=== PATIENT | male | born 1980 | race Caucasian/White ===

== ENCOUNTER 2020-12-02 09:47 | Emergency (ER) | payer OTHER ==
[~2020-12-02] VITALS: Ht 188 cm; Wt 106.8 kg
--- NOTE | 2020-12-02 10:30 | REP ---
INDICATION: CHEST PAIN. COMPARISON: None TECHNIQUE: Upright PA and lateral chest. FINDINGS: The lung dyson are clear. Cardiac size is normal. The last, mediastinum and skeletal structures are unremarkable. IMPRESSION: Essentially negative portable chest <Electronically signed by Prashanth Rudolph > 12/02/20 1025
[2020-12-02 10:33] LABS: BASO # 0.1 10^3/uL (0.0-0.2); BASO % 0.8 % (0.0-1.0); EOS # 0.2 10^3/uL (0.0-0.5); EOS % 2.9 % (0.0-3.0); HEMOGLOBIN 14.8 g/dl (13.5-17.5); LYMPH # 1.8 10^3/uL (1.5-5.0); LYMPH % 29.2 % (24.0-44.0); MEAN CORPUSCULAR HEMOGLOBIN 29.8 pg (27.0-33.0); MEAN CORPUSCULAR HGB CONC 32.9 g/dl (32.0-36.5); MEAN CORPUSCULAR VOLUME 90.5 fl (80.0-96.0); MONO # 0.7 10^3/uL (0.0-0.8); MONO % 10.6 % (2.0-8.0); NEUTROPHILS # 3.5 10^3/uL (1.5-8.5); NEUTROPHILS % 56.2 % (36.0-66.0); PLATELET COUNT, AUTOMATED 291 10^3/uL (150-450); RED BLOOD COUNT 4.97 10^6/uL (4.30-6.10); WHITE BLOOD COUNT 6.1 10^3/uL (4.0-10.0)
[2020-12-02 11:02] LABS: ALT/SGPT 55 U/L (12-78); BILIRUBIN,DIRECT < 0.1 MG/DL (0.0-0.2); BILIRUBIN,TOTAL 0.3 MG/DL (0.2-1.0); BLOOD UREA NITROGEN 15 MG/DL (7-18); CALCIUM LEVEL 8.9 MG/DL (8.5-10.1); CARBON DIOXIDE LEVEL 32 MEQ/L (21-32); CHLORIDE LEVEL 106 MEQ/L (98-107); CK-MB VALUE MASS < 1.0 NG/ML (<3.6); CPK CREATINE PHOSPHOKINASE 152 U/L (39-308); CREATININE FOR GFR 1.43 MG/DL (0.70-1.30); GLOMERULAR FILTRATION RATE 58.3 (>60); GLUCOSE, FASTING 104 MG/DL (70-100); LIPASE 118 U/L (73-393); MB/CK RELATIVE INDEX 0.66 (< OR =4); POTASSIUM SERUM 4.1 MEQ/L (3.5-5.1); SODIUM LEVEL 141 MEQ/L (136-145); TOTAL PROTEIN 7.4 GM/DL (6.4-8.2); TROPONIN I < 0.02 NG/ML (< 0.10)
[2020-12-02 11:04] LABS: RSV AMPLIFICATION NEGATIVE (NEGATIVE)
[2020-12-02] MEDS ORDERED: ISOVUE-370 76% 100ML VIAL As Ordered ONE (11:12)
--- NOTE | 2020-12-02 12:33 | REP ---
INDICATION: chest pain. COMPARISON: Radiograph today. TECHNIQUE: CT angiogram chest performed following the intravenous administration of 100 cc of Isovue 370. Sagittal and coronal reconstruction images are performed. FINDINGS: Lungs: There is no evidence of acute infiltrate in either lung. In the right lower lobe there is a 3 mm nodular density seen on image 54. In the left lower lobe there is a 5 mm nodular density seen on image 57. Mediastinum: No adenopathy. Pulmonary arteries: No evidence of pulmonary embolism. Meena: No adenopathy. Axilla: No adenopathy. Pleura: No effusion. Heart: Not enlarged. Thoracic aorta: No aneurysm or dissection. Upper abdominal structures: There is diffuse fatty infiltration of the liver. Visualized osseous structures: Unremarkable. IMPRESSION: No CT evidence of pulmonary embolism. No infiltrate seen. In the right lower lobe there is a 3 mm nodular density and in the left lower lobe there is a 5 mm nodular density. According to Fleischner society criteria, no follow-up is needed if the patient is at low risk for cancer, an optional 1 year follow-up CT may be obtained if the patient is at high risk for cancer. <Electronically signed by Prashanth Callejas > 12/02/20 0945
[2020-12-02 12:49] VITALS: BP 122/89
--- NOTE | 2020-12-02 12:53 | ECGEPIP ---
[facility] - ED Test Date: 2020-12-02 Pat Name: GAIL RIBERA Department: Room: - Gender: Male Math Teacher: MERYL : 1980 Requested By: Varinder Menjivar Order Number: [id number] Reading MD: Varinder Menjivar Measurements Intervals [place] Rate: 65 P: 31 RI: 174 QRS: 43 QRSD: 96 T: 21 QT: 388 QTc: 403 Interpretive Statements Normal sinus rhythm Minimal voltage criteria for LVH, may be normal variant ( Sokolow-[place] ) Nonspecific ST T wave changes No prior ECG for comparison Electronically Signed on 12-02-2020 12:53:05 EDT by Varinder Menjivar
--- NOTE | 2020-12-02 19:36 | ED PDOC ---
Post-Departure Follow-Up cta chest faxed to eugene [facility] for fu Varinder Hanson MD Dec 02, 2020 19:36
== END 2020-12-02 12:57 | disposition home or self-care (01) ==
LOC: EDBD 09:47 → M ED 09:47
DX: R07.9 Chest pain, unspecified (principal); R06.02 Shortness of breath; I10 Essential (primary) hypertension
CPT/HCPCS: 36415; 71045; 71275; 80048; 80076; 82550; 82553; 83690; 84484; 85025; 87631; 93005; 93041; 94760; 99285; Q9967

== ENCOUNTER → 2021-02-17 | Outpatient (CLI) | payer OTHER ==
[2021-02-17 16:00] LABS: ALT/SGPT 56 U/L (12-78); BILIRUBIN,TOTAL 0.4 MG/DL (0.2-1.0); BLOOD UREA NITROGEN 18 MG/DL (7-18); CARBON DIOXIDE LEVEL 32 MEQ/L (21-32); CHLORIDE LEVEL 102 MEQ/L (98-107); CREATININE FOR GFR 1.33 MG/DL (0.70-1.30); GLOMERULAR FILTRATION RATE > 60.0 (>60); GLUCOSE, FASTING 108 MG/DL (70-100); POTASSIUM SERUM 4.3 MEQ/L (3.5-5.1); SODIUM LEVEL 138 MEQ/L (136-145); TOTAL PROTEIN 7.7 GM/DL (6.4-8.2)
== END ==
LOC: M LAB 14:09
PROVIDERS: ATTEND Physician Assistant Medical
DX: K21.9 Gastro-esophageal reflux disease without esophagitis (principal)
CPT/HCPCS: 36415; 80053; G0463

== ENCOUNTER → 2021-04-02 | Outpatient (CLI) | payer OTHER ==
[~2021-04-02] MED LIST: PANT40TA29 PO
[2021-04-02 12:38] LABS: BLOOD UREA NITROGEN 11 MG/DL (7-18); CALCIUM LEVEL 9.4 MG/DL (8.5-10.1); CARBON DIOXIDE LEVEL 31 MEQ/L (21-32); CHLORIDE LEVEL 104 MEQ/L (98-107); CREATININE FOR GFR 1.13 MG/DL (0.70-1.30); GLOMERULAR FILTRATION RATE > 60.0 (>60); GLUCOSE, FASTING 76 MG/DL (70-100); POTASSIUM SERUM 4.2 MEQ/L (3.5-5.1); SODIUM LEVEL 139 MEQ/L (136-145)
== END ==
LOC: M LAB 11:24
PROVIDERS: ATTEND Physician Assistant Medical
DX: K21.9 Gastro-esophageal reflux disease without esophagitis (principal); R10.13 Epigastric pain

== ENCOUNTER 2021-04-05 12:47 | Day surgery (SDC) | payer OTHER ==
[~2021-04-05] VITALS: Ht 182.9 cm; Wt 108.8 kg
[~2021-04-05 12:47] MED LIST changes: +LIDOCAINE 2% 100MG/5ML SDV (FOR ANES.) As Ordered ONE; +NS 1,000 ML IV ONE; +propofoL 200 MG/20 ML VIAL As Ordered ONE
--- OUTSIDE RECORDS SUMMARY | 2021-04-05 12:51 | CCD ---
Author Author [facility] Address Unknown Phone Unavailable Support Name Relationship Address Phone [facility] Next Of Kin [address] [place] [address] Unavailable PENNIE RIBERA Next Of Kin [id number] [place] [address] Re-disclosure Warning The records that you are about to access may contain information from federally-assisted alcohol or drug abuse programs. If such information is present, then the following federally mandated warning applies: This information has been disclosed to you from records protected by federal confidentiality rules (42 CFR part 2). The federal rules prohibit you from making any further disclosure of this information unless further disclosure is expressly permitted by the written consent of the person to whom it pertains or as otherwise permitted by 42 CFR part 2. A general authorization for the release of medical or other information is NOT sufficient for this purpose. The Federal rules restrict any use of the information to criminally investigate or prosecute any alcohol or drug abuse patient.The records that you are about to access may contain highly sensitive health information, the redisclosure of which is protected by Article 27-F of the [facility] Public Health law. If you continue you may have access to information: Regarding HIV / AIDS; Provided by facilities licensed or operated by the [facility] Office of Mental Health; or Provided by the [facility] Office for People With Developmental Disabilities. If such information is present, then the following [facility] mandated warning applies: This information has been disclosed to you from confidential records which are protected by state law. State law prohibits you from making any further disclosure of this information without the specific written consent of the person to whom it pertains, or as otherwise permitted by law. Any unauthorized further disclosure in violation of state law may result in a fine or penitentiary sentence or both. A general authorization for the release of medical or other information is NOT sufficient authorization for further disc losure. Immunizations Vaccine Date Status Description Data Source(s) COVID-19 VACCINE Pfizer 08/25/2020 12:00:00 AM EDT completed [facility] Vaccine Series Complete: NOThis Data was Submitted to [facility] Via [employer]. Medications Medication Brand Name Start Date Product Form Dose Route Admi nistrative Instructions Pharmacy Instructions Status Indications Reaction Description Data Source(s) pantoprazole 40 MG Delayed Release Oral Tablet Pantoprazole Sodium 02/17/2021 12:00:00 AM EDT [facility] Insurance Providers Payer name Policy type / Coverage type Policy ID Covered green party ID Covered green party's relationship to coffey Policy Coffey Plan Information [facility] [id number] Problems, Conditions, and Diagnoses No Information Surgeries/Procedures No Information Results ID Date Data Source [id number] 03/31/2021 10:57:00 AM EST [facility] Name Value Range Interpretation Code Description Data Madeyln rce(s) Supporting Document(s) SARS coronavirus 2 RNA Not Detected [facility] This lab was ordered by [facility] and reported by [facility]. ID Date Data Source [id number] 02/17/2021 02:34:00 PM EDT [facility] ([facility]) Name Value Range Interpretation Code Description Data Madelyn rce(s) Supporting Document(s) Glucose, Fasting 108 mg/dL 70-100 Above high normal [facility] ([facility], ) Blood Urea Nitrogen 18 mg/dL 7-18 Normal (applies to non-nume everette results) [facility] ([facility]) Creatinine For GFR 1.33 mg/dL 0.70-1.30 Above high normal [facility] ([facility]) Glomerular Filtration Rate Laboratory test result Normal (applies to non- numeric results) [facility] ([facility]) <content>Units are mL/min/1.73 m2</content>
<content></content>
<content>Chronic Kidney Disease Staging per NKF:</content>
<content></content>
<content>Stage I & II GFR >=60 Normal to Mildly Decreased</content>
<content>Stage III GFR 30-59 Moderately Decreased</content>
<content>Stage IV GFR 15-29 Severely Decreased</content>
<content>Stage V GFR <15 Very Little GFR Left</content>
<content>ESRD GFR <15 on MANAGER [employer]CH[employer]</content>
<content></content> Potassium Serum 4.3 meq/L 3.5-5.1 Normal (applies to non-numeric results) [facility] ([facility], ) Chloride Level 102 meq/L 98-107 Normal (applies to non-numeric r esults) [facility] ([facility], ) Carbon Dioxide Level 32 meq/L 21-32 Normal (applies to non-num raquel results) [facility] ([facility], ) Sodium Level 138 meq/L 136-145 Normal (applies to non-numeric res ults) [facility] ([facility], ) Calcium Level 9.0 mg/dL 8.5-10.1 Normal (applies to non-numeric re sults) [facility] ([facility], ) Ast/Sgot 18 U/L 7-37 Normal (applies to non-numeric resul ts) [facility] Anion Gap 4 meq/L 8-16 Below low normal [facility] ( [facility], ) Alt/SGPT 56 U/L 12-78 Normal (applies to non-numeric resul ts) [facility] ([facility], ) Alkaline Phosphatase 62 U/L 45-117 Normal (applies to non-num raquel results) [facility] ([facility], ) Bilirubin,Total 0.4 mg/dL 0.2-1.0 Normal (applies to non-numeric results) [facility] ([facility], ) Total Protein 7.7 GM/DL 6.4-8.2 Normal (applies to non-numeric re sults) [facility] ([facility], ) Albumin/Globulin Ratio 1.1 Normal (applies to non-n umeric results) [facility] ([facility], ) 02/18/21 (Thr Feb 18) 03:08 PM BRONSON NAMRATAMANI Creatinine and GFR improved. Will inform patient. See triage. Albumin 4.0 GM/DL 3.2-5.2 Normal (applies to non-numeric resul ts) [facility] ([facility]) Procedure Social History No Information Vital Signs ID Date Data Source UNK Name Value Range Interpretation Code Description Data Source(s) Body surface area Derived from formula 2.35 m2 2.35 m2 [facility] ([facility]) Systolic blood pressure 128 mm[Hg] 128 mm[Hg] M [facility] ([facility]) Diastolic blood pressure 84 mm[Hg] 84 mm[Hg] [facility] ([facility]) Body height 73 [in_i] 73 [in_i] [facility] ([facility]) 6'1" Body weight 245.00 [lb_av] 245.00 [lb_av] [facility] ([facility]) Body mass index (BMI) [Ratio] 32.3 kg/m2 32.3 k g/m2 [facility] ([facility]) [place] body weight 184 [lb_av] 184 [lb_av] [facility] Body weight 111.132 kg 111.132 kg [facility] ([facility])
--- OUTSIDE RECORDS SUMMARY | 2021-04-05 12:51 | CCD | Continuity of Care Document ---
Author Author Mitul COSBY MD Organization Unknown Address [address] [place] [address] Phone [phone] Care Team Providers Care Skilled Nursing Professional Name Role Phone No PCP [facility] Unavailable Jamison Nolasco PA-C [facility]M [phone] Problems Description No Active Problems Social History Type Date Description Comments Sex Unknown ETOH Use Denies alcohol use Tobacco Use Start: Unknown Non Smoker Allergies and adverse reactions Description No Known Drug Allergies Medications Active Medications SIG Qnty Indications Ordering Provide r Date Pantoprazole Sodium 40mg Tablets D R take 1 tablet by mouth once daily. 60tabs K21.9 Kev Cosby MD Immunizations Description No Information Available Vital Signs Date Vital Result Comment 02/17/2021 8:27am BP Systolic 128 mmHg BP Diastolic 84 mmHg Height 73 inches 6'1" Weight 245.00 lb BMI (Body Mass Index) 32.3 kg/m2 [place] Body Weight 184 lb Weight 111.132 kg BSA (Body Surface Area) 2.35 m2 Results Test Acquired Date Facility Test Result H/L Range Note Comprehensive Metabolic Profil 02/17/2021 [facility] [address], [place] [id number] [phone] Glucose, Fasting 108 mg/dL High 70-100 Blood Urea Nitrogen 18 mg/dL Normal 7-18 Creatinine For GFR 1.33 mg/dL High 0.70-1.30 Glomerular Filtration Rate > 60.0 Normal >60 1 Sodium Level 138 mEq/L Normal 136-145 Potassium Serum 4.3 mEq/L Normal 3.5-5.1 Chloride Level 102 mEq/L Normal 98-107 Carbon Dioxide Level 32 mEq/L Normal 21-32 Anion Gap 4 mEq/L Low 8-16 Calcium Level 9.0 mg/dL Normal 8.5-10.1 Ast/Sgot 18 U/L Normal 7-37 Alt/SGPT 56 U/L Normal 12-78 Alkaline Phosphatase 62 U/L Normal 45-117 Bilirubin,Total 0.4 mg/dL Normal 0.2-1.0 Total Protein 7.7 GM/DL Normal 6.4-8.2 Albumin 4.0 GM/DL Normal 3.2-5.2 Albumin/Globulin Ratio 1.1 Normal 2 1 Units are mL/min/1.73 m2 Chronic Kidney Disease Staging per NKF: Stage I & II GFR >=60 Normal to Mildly Decreased Stage III GFR 30-59 Moderately Decreased Stage IV GFR 15-29 Severely Decreased Stage V GFR <15 Very Little GFR Left ESRD GFR <15 on CURB SETTER HELPER 2 02/18/21 (Thr Feb 18) 03:08 PM SIOBHAN MCKEON Creatinine and GFR improved. Will inform patient. See triage. Procedures Description No Information Available Medical Devices Description No Information Available Encounters Description No Information Available Assessments Date Code Description Provider 02/17/2021 K21.9 Gastro-esophageal reflux disease without esophagitis [place] Mallory 02/17/2021 R10.13 Epigastric pain Siobhan A [place] Curry 02/17/2021 R10.12 Left upper quadrant pain [place] Mallory 02/17/2021 R11.0 Nausea Siobhan Rajiv [place] Curry 02/17/2021 R05.9 Cough, unspecified [place] Wing Cha Plan of Treatment Future Appointment(s):* 03/10/2021 9:50 am - [facility] Mallory at [facility] 02/17/2021 - [place] Mallory* K21.9 Gastro-esophageal reflux disease without esophagitis * R10.13 Epigastric pain * R10.12 Left upper quadrant pain * R11.0 Nausea * R05.9 Cough, unspecified * * New Medication:* Pantoprazole Sodium 40 mg * New Orders:* Endoscopy, Ordered: 02/17/21 * Comments:* Will arrange for upper endoscopy. Reviewed risks and benefits of the procedure, as well as other options, with the patient. Prep for this procedure was discussed with patient. Patient verbalized understanding of all of the above and is in agreement to proceed. Patient will seek medical attention for any acute changes. Will monitor. * Follow up:* 2 weeks after EGD, sooner if needed. Functional Status Description No Information Available Mental Status Description No Information Available Referrals Refer to Reason for Referral Status Appt Date Harry Valdivia M.D. REFLUX Scheduled 02/17 [facility], [place] [address] [phone]
--- OUTSIDE RECORDS SUMMARY | 2021-04-05 12:51 | CCD | Continuity of Care Document ---
Author Author Mitul MCKEON RPA Organization Unknown Address [address] [place] [address], [address] [place] [address] Phone [phone] Care Team Providers Care Watch Case Polisher Name Role Phone No PCP AUTM Unavailable Jamison Nolasco PA-C AUTM [phone] Problems Description No Active Problems Social History Type Date Description Comments Sex Unknown ETOH Use Denies alcohol use Tobacco Use Start: Unknown Non Smoker Allergies and adverse reactions Description No Known Drug Allergies Medications Active Medications SIG Qnty Indications Ordering Provide r Date Pantoprazole Sodium 40mg Tablets D R take 1 tablet by mouth twice daily. 60tabs K21.9 Kev Cosby MD Immunizations Description No Information Available Vital Signs Date Vital Result Comment 02/17/2021 8:27am BP Systolic 128 mmHg BP Diastolic 84 mmHg Height 73 inches 6'1" Weight 245.00 lb BMI (Body Mass Index) 32.3 kg/m2 [place] Body Weight 184 lb Weight 111.132 kg BSA (Body Surface Area) 2.35 m2 Results Description No Information Available Procedures Description No Information Available Medical Devices Description No Information Available Encounters Description No Information Available Assessments Date Code Description Provider 02/17/2021 K21.9 Gastro-esophageal reflux disease without esophagitis [place] Mallory 02/17/2021 R10.13 Epigastric pain [place] Soto 02/17/2021 R10.12 Left upper quadrant pain [place] Mallory 02/17/2021 R11.0 Nausea Siobhan A [place] Curry 02/17/2021 R05.9 Cough, unspecified Siobhan [place] Josue Cha Plan of Treatment 02/17/2021 - Siobhan Mckeon, NEFTALI-C* K21.9 Gastro-esophageal reflux disease without esophagitis * R10.13 Epigastric pain * R10.12 Left upper quadrant pain * R11.0 Nausea * R05.9 Cough, unspecified * * New Medication:* Pantoprazole Sodium 40 mg * New Labs:* Comprehensive Metabolic Profil, Ordered: 02/17/21 * New Orders:* Endoscopy, Ordered: 02/17/21 * [...] Description No Information Available Referrals Refer to Dr Reason for Referral Status Appt Date aHrry Valdivia M.D. REFLUX Scheduled 02/17 [facility] [address] [facility], [address] [place] [id number] [phone]
--- NOTE | 2021-04-05 15:12 | ROOR ---
Patient Name: Mitul Waterman Procedure Date: 04/05/2021 2:32 PM Date of : 1980 Age: 40 Room: [facility] Gender: Male Note Status: Finalized Procedure: Upper GI endoscopy Indications: Epigastric abdominal pain, Heartburn, Nausea Providers: Harry Valdivia MD Referring MD: JACKLYN BRAGG MD Requesting Provider: Medicines: Monitored Anesthesia Care Complications: No immediate complications. Procedure: Pre-Anesthesia Assessment: - Prior to the procedure, a History and Physical was performed, and patient medications and allergies were reviewed. The patient is competent. The risks and benefits of the procedure and the sedation options and risks were discussed with the patient. All questions were answered and informed consent was obtained. Patient identification and proposed procedure were verified by the physician, the nurse and the anesthesiologist in the procedure room. Mental Status Examination: alert and oriented. Airway Examination: normal oropharyngeal airway and neck mobility. Respiratory Examination: clear to auscultation. CV Examination: normal. Prophylactic Antibiotics: The patient does not require prophylactic antibiotics. Prior Anticoagulants: The patient has taken no previous anticoagulant or antiplatelet agents. ASA Grade Assessment: II - A patient with mild systemic disease. After reviewing the risks and benefits, the patient was deemed in satisfactory condition to undergo the procedure. The anesthesia plan was to use monitored anesthesia care (MAC). Immediately prior to administration of medications, the patient was re-assessed for adequacy to receive sedatives. The heart rate, respiratory rate, oxygen saturations, blood pressure, adequacy of pulmonary ventilation, and response to care were monitored throughout the procedure. The physical status of the patient was re-assessed after the procedure. The Endoscope was introduced through the mouth, and advanced to the second part of duodenum. The upper GI endoscopy was accomplished without difficulty. The patient tolerated the procedure well. Findings: LA Grade A (one or more mucosal breaks less than 5 mm, not extending between tops of 2 mucosal folds) esophagitis with no bleeding was found in the distal esophagus. Biopsies were taken with a cold forceps for histology. Verification of patient identification for the specimen was done by the physician and nurse using the patient's name, date and medical record number. Estimated blood loss was minimal. Scattered mild inflammation characterized by erythema and granularity was found in the gastric antrum. Biopsies were taken with a cold forceps for Helicobacter pylori testing. The duodenal bulb, second portion of the duodenum, area of the papilla and third portion of the duodenum were normal. Impression: - LA Grade A reflux esophagitis. Rule out Funes's esophagus. Biopsied. - Gastritis. Biopsied. - Normal duodenal bulb, second portion of the duodenum, area of the papilla and third portion of the duodenum. Recommendation: - Patient has a contact number available for emergencies. The signs and symptoms of potential delayed complications were discussed with the patient. Return to normal activities tomorrow. Written discharge instructions were provided to the patient. - High fiber diet and Anti-acid reflux diet -- small meals, sit upright atleast 1 hour after meals, avoid fatty/ oily foods and avoid foods that cause reflux. - Continue present medications. - Follow an antireflux regimen. - Await pathology results. - Return to GI clinic if persistent symptoms or new symptoms. - Return to primary care physician. Procedure Code(s): --- Professional --- [id number], Esophagogastroduodenoscopy, flexible, transoral; with biopsy, single or multiple Diagnosis Code(s): --- Professional --- K21.0, Gastro-esophageal reflux disease with esophagitis K29.70, Gastritis, unspecified, without bleeding R10.13, Epigastric pain R12, Heartburn R11.0, Nausea CPT copyright 2019 [employer]. All rights reserved. The codes documented in this report are preliminary and upon portable trackman review may be revised to meet current compliance requirements. Harry Valdivia MD Harry Valdivia MD 04/05/2021 3:12:43 PM Electronically signed by Harry Valdivia MD Number of Addenda: 0 Note Initiated On: 04/05/2021 2:32 PM Estimated Blood Loss: Estimated blood loss was minimal.
[2021-04-05 15:20] VITALS: BP 140/94
== END 2021-04-05 15:21 | disposition home or self-care (01) ==
LOC: M OPP 12:47
PROVIDERS: ATTEND Internal Medicine Gastroenterology
DX: K21.00 Gastro-esophageal reflux disease with esophagitis, without bleeding (principal); K29.70 Gastritis, unspecified, without bleeding; R10.13 Epigastric pain; R11.0 Nausea; Z80.1 Family history of malignant neoplasm of trachea, bronchus and lung